=== PATIENT | male | born 1960 | race Caucasian/White ===

== ENCOUNTER 2023-02-20 08:44 | Outpatient (OUT) | payer OTHER, SELFPAY ==
--- NOTE | 2023-02-20 09:40 | CA_ITS ---
Patient Name: SUE GILBERT MR#: [id number] : 1960 Exam Date: 02/20/2023 Ordering Doctor: MARIELA MURILLO ECHOCARDIOGRAM REPORT PROCEDURE: CA ECHO DOPPLER COMPLETE INDICATIONS: Chest pain, CAD COMPARISON: None. DESCRIPTION: COMPLETE ECHOCARDIOGRAM Real-time transthoracic echocardiography with 2D, M-mode, spectral and color flow Doppler performed. QUALITY: Technical quality was good. LEFT VENTRICLE: Normal chamber size. Mild concentric left ventricular hypertrophy. LV EF: Global left ventricular systolic function is hyperdynamic. Visual estimation of left ventricular ejection fraction is 65-70% DIASTOLIC: Normal diastolic function. ATRIAL SEPTUM: Inadequately seen. LEFT ATRIUM: Normal chamber size. RIGHT ATRIUM: Normal chamber size. RIGHT VENTRICLE: Normal chamber size. Normal right ventricular systolic function. TRICUSPID VALVE: Normal mobility and thickness. No stenosis with trivial regurgitation. No evidence of pulmonary hypertension. RVSP 32mmHg MITRAL VALVE: Normal mobility and thickness. No evidence of mitral valve stenosis. There is no mitral annular calcification. Mild mitral regurgitation. AORTIC VALVE: Normal trileaflet appearance. No visible sclerosis. Normal leaflet mobility. No evidence of aortic valve stenosis. No aortic regurgitation. AORTIC ROOT: Normal diameter and appearance. PULMONIC VALVE: Normal thickness and mobility. No stenosis. No regurgitation. PERICARDIUM: No evidence of pericardial effusion. IVC: Collapses with inspirations. Normal size. CONCLUSION: 1. Global left ventricular systolic function is hyperdynamic; visually estimated ejection fraction is 65 to 70% 2. Normal right ventricular size and systolic function 3. Mild increased left ventricular wall thickness 4. Normal diastolic function 5. Mild mitral regurgitation Adult Echocardiography Procedure Report Left Ventricle LVEDD (3.7 - 5.6 cm): 4.44 cm LVESD (2.2 - 4.0 cm): 2.99 cm LVIVS thickness (0.6 - 1.2 cm): 1.34 cm LVPW thickness (0.5 - 1.0 cm): 1.10 cm e': 0.10 m/s E - e': 7.67 LVOT Max Gradient: 3.81 mm[Hg] LVOT Area (cm2): 0.98 m/s Peak Velocity (LVOT): 0.98 m/s Mean Velocity (LVOT): 0.58 m/s LVOT Diameter 2.20 cm Left Ventricular Ejection Fraction: 70.62 % Left Atrium LA Volume Index (2D A2C): 24.49 ml/m2 Left Atrium Systolic Dimension: 3.22 cm Mitral Valve MV E to A Ratio: 1.20 Mitral Valve A-Wave Peak Velocity: 0.65 m/s Mitral Valve E-Wave Peak Velocity: 0.78 m/s Right Ventricle RV Internal Diastolic Dimension: 3.36 cm Aorta AO Root Diam: 2.93 cm Ascending Ao Diam: 2.86 cm Aortic Valve AoV Area (Peak Rod): 2.68 cm2, 2.80 cm2 AoV Area (VTI): 2.40 cm2, 2.49 cm2 Peak Velocity(Antegrade Flow): 1.32 m/s, 1.44 m/s Peak Gradient(Antegrade Flow): 7.01 mm[Hg], 8.30 mm[Hg] Mean Velocity(Antegrade Flow): 0.90 m/s, 0.98 m/s Mean Gradient(Antegrade Flow): 3.65 mm[Hg], 4.32 mm[Hg] Velocity Time Integral: 30.88 cm, 33.10 cm Tricuspid Valve Peak Velocity (Regurgitant Flow): 2.61 m/s, 2.36 m/s, 2.69 m/s Pulmonic Valve Mean Gradient: 2.13 mm[Hg], 1.99 mm[Hg] Mean Velocity: 0.70 m/s, 0.67 m/s Peak Velocity: 0.95 m/s Peak Gradient: 3.81 mm[Hg], 3.47 mm[Hg] Right Atrium Right Atrium Systolic Pressure: 42.58 ml, 42.58 ml Dictated by: Rony Grullon M.D. on 02/20/2023 at 15:14 Approved by: Rony Grullon M.D. on 02/20/2023 at 15:17
== END 2023-02-20 08:45 | disposition home or self-care (01) ==
LOC: CARD 08:45
DX: R07.9 Chest pain, unspecified (principal)
CPT/HCPCS: 93306